=== PATIENT | female | born 1960 | race Caucasian/White ===

== ENCOUNTER 2024-03-01 15:44 | Day surgery (SDC) | payer MEDICARE ==
[2024-03-01] MEDS ORDERED: Sodium Chloride 0.9(Preservative Free) 10 ML IJ ONE (15:45)
[2024-03-01] MEDS ORDERED: LIDOCAINE HCL 1% 50 MG/5 ML VL PF IJ ONE (15:45)
[2024-03-01] MEDS ORDERED: Decadron 4 MG INJ IV ONE (15:45)
[2024-03-01] MEDS ORDERED: Lactated Ringers 1,000 ML IV ONE (16:39)
--- NOTE | 2024-03-01 20:33 | XRAY ---
Indication: Cervical XIOMARA. Intraoperative fluoroscopy provided for 35 seconds. 4digital spot image submitted for interpretation demonstrates posterior needle tip projecting over the cervicothoracic junction. Small amount of contrast injected for needle tip placement. Correlate with intraoperative findings/report.
--- NOTE | 2024-03-02 08:41 | XRAY ---
35 seconds of fluoroscopy in surgery was used for a Cervical XIOMARA.
== END 2024-03-01 17:45 | disposition home or self-care (01) ==
LOC: SDC-PAIN 15:44
PROVIDERS: ATTEND Psychiatry & Neurology Pain Medicine
DX: M54.12 Radiculopathy, cervical region (principal); E11.9 Type 2 diabetes mellitus without complications
CPT/HCPCS: 62321; 72040; 77003; 82947; J1100; J2001; Q9966

== ENCOUNTER 2024-04-12 06:58 | Day surgery (SDC) | payer MEDICARE | END 2024-04-12 07:04 | disposition home or self-care (01) | LOC: SDC-PAIN 06:58 | PROVIDERS: ATTEND Psychiatry & Neurology Pain Medicine | DX: Z53.8 Procedure and treatment not carried out for other reasons (principal) ==

== ENCOUNTER 2024-05-10 07:07 | Day surgery (SDC) | payer MEDICARE ==
[2024-05-10] MEDS ORDERED: Xylocaine-Mpf 2% 5 Ml Vial IJ ONE (07:08)
[2024-05-10] MEDS ORDERED: DIPRIVAN 200 MG/20 ML IV ONE ×2 (08:50→09:05)
--- NOTE | 2024-05-10 11:01 | XRAY ---
Indication: Bilateral L4-S1 MBB. Intraoperative fluoroscopy provided for 47 seconds. Single digital spot image submitted for interpretation demonstrates posterior needle tips project over the expected left and right L4-S1 nerve roots. Correlate with intraoperative findings/report. Incidental L4-L5 fusion hardware.
--- NOTE | 2024-05-10 11:03 | XRAY ---
47 seconds of fluoroscopy was used in surgery for a bilateral L4-S1 MBB.
[2024-05-10] MEDS ORDERED: Lactated Ringers 1,000 ML IV ONE (12:11)
== END 2024-05-10 09:35 | disposition home or self-care (01) ==
LOC: SDC-PAIN 07:07
PROVIDERS: ATTEND Psychiatry & Neurology Pain Medicine
DX: M47.816 Spondylosis without myelopathy or radiculopathy, lumbar region (principal); E11.9 Type 2 diabetes mellitus without complications
CPT/HCPCS: 64493; 64494; 72020; 77002; 82947; J2704